=== PATIENT | female | born 1990 | race Caucasian/White ===

== ENCOUNTER 2024-01-24 18:30 | Emergency (ER) | payer BC ==
[2024-01-24] MEDS: Lidocaine 1% 5 ML VIAL INJECT ONE (19:19)
[2024-01-24] MEDS: Bacitracin/Neomycin/Polymyxin B Oint 0.9 GM U/D Packet TOP ONE (19:19)
== END 2024-01-24 19:20 | disposition home or self-care (01) ==
LOC: CC.ED 18:30
DX: S91.012A Laceration without foreign body, left ankle, initial encounter (principal); W26.8XXA Contact with other sharp object(s), not elsewhere classified, initial encounter
CPT/HCPCS: 12002; 99282; A9270-GY; J3490